=== PATIENT | female | born 1970 | race Caucasian/White ===

== ENCOUNTER 2020-02-04 15:48 | Emergency (ER) | payer MEDICARE, MEDICAID ==
[~2020-02-04] VITALS: Ht 167.6 cm; Wt 65.0 kg
[2020-02-04 16:38] LABS: BASOPHILS # (AUTO) 0.1 X10'3 (0-0.2); BASOPHILS % (AUTO) 0.7 % (0-1); EOSINOPHILS % (AUTO) 0.1 % (0-6); HEMOGLOBIN 15.3 g/dl (12.0-16.0); MEAN CORPUSCULAR HEMOGLOBIN 31.6 PG (27.0-31.0); MONOCYTES # (AUTO) 0.7 X10'3 (0-0.9); NEUTROPHILS # (AUTO) 4.7 X10'3 (1.8-7.7); RED CELL DISTRIBUTION WIDTH 17.5 % (11.5-14.5)
[2020-02-04 16:39] LABS: HEMATOCRIT 44.6 % (35.0-45.0); LYMPHOCYTES % (AUTO) 26.6 % (21-51); MEAN CORPUSCULAR HGB CONC 34.2 g/dL (33.0-36.5); MEAN CORPUSCULAR VOLUME 92.3 FL (78-98); NEUTROPHILS % (AUTO) 62.6 % (42-75); PLATELET COUNT 266 X10'3 (140-440); RED BLOOD COUNT 4.84 X10'6 (4.20-5.60); WHITE BLOOD COUNT 7.5 X10'3 (4.5-11.0)
[2020-02-04] MEDS ORDERED: LORazepam 2 mg/ml vial IM ONE (16:45)
[2020-02-04] MEDS ORDERED: diphenhydrAMINE 50 mg/ml inj IM ONE (16:45)
[2020-02-04 16:53] LABS: ALANINE AMINOTRANSFERASE 32 U/L (12-78); ALBUMIN 4.1 G/DL (3.4-5.0); ALBUMIN/GLOBULIN RATIO 1.1 (1.1-1.5); ALKALINE PHOSPHATASE 81 IU/L (46-116); ANION GAP 8 (8-16); ASPARTATE AMINO TRANSFERASE 30 U/L (10-37); BILIRUBIN,TOTAL 0.3 MG/DL (0.1-1.0); BLOOD UREA NITROGEN 16 MG/DL (7-18); BUN/CREATININE RATIO 16.3 (6.6-38.0); CALCIUM 9.5 MG/DL (8.5-10.1); CHLORIDE 102 MMOL/L (99-107); CREATININE 0.98 MG/DL (0.40-0.90); GLUCOSE 58 MG/DL (70-104); POTASSIUM 4.1 MMOL/L (3.5-5.1); SODIUM 137 MMOL/L (135-145); TOTAL PROTEIN 7.7 G/DL (6.4-8.2); eGFR 61 ML/MIN
[2020-02-04 16:54] LABS: ETHANOL < 0.010 GM/DL (0.0-0.010)
[2020-02-04] MEDS ORDERED: haloperidol lactate 5mg/ml inj IM ONE (17:00)
[2020-02-04 17:14] LABS: URINE HCG NEGATIVE (NEG)
[2020-02-04 17:15] LABS: CLARITY,URINE CLEAR (Clear); COLOR,URINE YELLOW (Yellow); GLUCOSE, URINE NEGATIVE (Neg); KETONES,URINE NEGATIVE (Neg); LEUKOCYTE ESTERASE ,URINE NEGATIVE (Neg); NITRITES, URINE NEGATIVE (Neg); OCCULT BLOOD,URINE TRACE-INTACT (Neg); PROTEIN,URINE NEGATIVE (Neg); UROBILINOGEN,URINE 0.2 E.U/dL (0.2-1.0)
[2020-02-04 17:23] LABS: UA COLLECTION TYPE CLN CATCH MIDSTREAM
[2020-02-04 17:24] LABS: BACTERIA,URINE NONE SEEN /HPF (Neg); MUCUS STRANDS NONE SEEN /LPF (Neg); RBC,URINE 0-2 /HPF (0-2); SQUAMOUS EPITHELIAL CELL,UR NONE SEEN /LPF (FEW); WBC,URINE NONE SEEN /HPF (0-4)
[2020-02-04 17:27] LABS: URINE AMPHETAMINE SCREEN NEGATIVE (Neg); URINE BARBITUATE SCREEN NEGATIVE (Neg); URINE BENZODIAZEPINES SCREEN NEGATIVE (Neg); URINE CANNABINOID SCREEN NEGATIVE (Neg); URINE COCAINE SCREEN NEGATIVE (Neg); URINE METHADONE SCREEN NEGATIVE (Neg); URINE OPIATE SCREEN NEGATIVE (Neg); URINE PHENCYCLIDINE SCREEN NEGATIVE (Neg)
[2020-02-04] MEDS ORDERED: dextrose 15gm/59ml oral solution PO ONE (18:00)
--- NOTE | 2020-02-04 18:10 | NUR ---
[facility] brought from main ER. Patient had been given a B52 secondary to altered LOC and combative behavior. Patient is sedate but awakens to verbal stimuli. Report called from ADOLFO Crouch from the main ER. Patient reported to have a blood sugar of 42. We are awaiting oral glucose 15mg from the pharmacy. In the meantime, the patient was placed in bed in a high fowlers position. Patient is able to hold juice cup. Patient was able to drink 440cc of apple juice. She then ate 1/2 of a turkey sandwich to suppliment with complex carbs. (100 grams.) Patients SaO2 is 99 percent on room air. She is sedate but follows commands well. Patients weight is estimated.
--- NOTE | 2020-02-04 18:40 | NUR ---
Oral glucose 15 grams arrived from pharmacy. The patient was able to sit up and take PO without problem. Blood sugar will be followed closely.
--- NOTE | 2020-02-04 19:08 | NUR ---
Glucometer check, Chem bG is now 74. Patient awakens to light stimuli, voice and touch. She grumbles and states she wants to sleep. No distress, color is good, she is warm and dry.
--- NOTE | 2020-02-04 20:45 | NUR ---
Patient is sleeping quietly on her left side. No distress. Glucose check is 162.
--- NOTE | 2020-02-04 23:08 | NUR ---
Patient is sleeping quietly on her left side, low fowlers position in bed.
--- NOTE | 2020-02-05 02:01 | NUR ---
Patient is sleeping on her left side quietly. Patient has self repositioned. In direct view from the nursing station.
--- NOTE | 2020-02-05 03:52 | NUR ---
Patient sleeping quietly on her left side. She is warm and dry with good color. Mild snoring present.
--- NOTE | 2020-02-05 05:59 | NUR ---
Patient sleeping quietly, mid fowlers position.
--- NOTE | 2020-02-05 06:45 | NUR ---
Resting with eyes closed, respirations normal
--- NOTE | 2020-02-05 08:30 | NUR ---
Resting in bed quietly with eyes closed, respirations normal.
--- NOTE | 2020-02-05 11:51 | NUR ---
Up to bathroom, making comments that [place], and that [place]" and something about "prostitutes and whores" Back to bed after the bathroom
--- NOTE | 2020-02-05 14:26 | NUR ---
Resting in bed with eyes closed, respirations normal. Ate lunch
--- NOTE | 2020-02-05 14:55 | NUR ---
Pt awake and sitting up in bed, talking to herself
[2020-02-05] MEDS ORDERED: NO HOME MEDS (15:05)
--- NOTE | 2020-02-05 16:15 | NUR ---
Became slightly agitated while speaking with [facility] Rn, making nonsense statements.
--- NOTE | 2020-02-05 17:00 | NUR ---
Up to bathroom, states "I am in charge of the prostitutes" on her way into the bathroom. Came out and quietly went back to bed.
--- NOTE | 2020-02-05 17:33 | NUR ---
Rec call from [facility] in consideration for placement
[2020-02-05 17:36] VITALS: BP 101/61
--- NOTE | 2020-02-05 17:51 | NUR ---
Call from [facility] requesting TSH, added to orders.
--- NOTE | 2020-02-05 18:11 | NUR ---
Eating dinner, talking to herself.
--- NOTE | 2020-02-05 18:30 | NUR ---
Patient sleeping of left side. No distress observed. Continue to monitor.
--- NOTE | 2020-02-05 19:17 | NUR ---
Patient acceptance at [facility] by ASAD Smith. 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 KATH Payne.
--- NOTE | 2020-02-05 19:31 | NUR ---
Patient awoke and RN got patient water and juice. Patient not making sense. Patient talking about prostitutes. "This is Satan for the first time....this is why I told you...you better get after her...like a tree...open the Bible...Here we runaway....you come down....and I can use my time in dust...(laughs). I'm at the bar where women have stinking slavery....you get shot up...have issues....."
[2020-02-05] MEDS ORDERED: OLANZapine 2.5MG tablet PO ONE (20:05)
--- NOTE | 2020-02-05 20:12 | NUR ---
RN requested 5 mg Zyprexa to give the patient some relief from her rambling. Patient asked what the medication is. RN advised patient is was Zyprexa, an antipsychotic. RN asked patient if she had any allergies. Patient did not respond and took the medication and rolled over. Continue to monitor.
== END 2020-02-05 21:45 ==
LOC: ER 15:49
DX: F29 Unspecified psychosis not due to a substance or known physiological condition (principal)
CPT/HCPCS: 36415; 80053; 80305; 80320; 81001; 81025; 82948; 84443; 85025; 96372; 99285; J1200; J1630; J2060